=== PATIENT | female | born 1965 | race Caucasian/White ===

== ENCOUNTER 2017-06-09 20:01 | Emergency (ER) | payer OTHER ==
[~2017-06-09 20:01] MED LIST: CEFUROXIME500 MG PO; PYRIDIUM100 M1 PO
== END 2017-06-09 20:52 | disposition admitted as inpatient to this hospital (09) ==
LOC: ERH 20:01
DX: R10.9 Unspecified abdominal pain (principal)

== ENCOUNTER → 2017-07-18 | Day surgery (SDC) | payer OTHER ==
[~2017-07-18] MED LIST changes: +GABAPENTIN300 M2; +IBUPROFEN800 M1 PO; +PERCOCET 5-3251 EACH PO; +RESTASIS1 EACH OPH
--- NOTE | 2017-07-18 15:58 | ED GI/GU/ABDOMINAL COMPLAINT ---
History of Present Illness General Chief Complaint: Abdominal Pain/Flank Pain Stated Complaint: ABD PAIN Source: patient, family, old records Exam Limitations: no limitations Vital Signs & Intake/Output Vital Signs & Intake/Output Vital Signs Date Time Temp Pulse Resp B/P B/P Pulse O2 O2 Flow FiO2 Mean Ox Delivery Rate 07/18 1704 98.6 72 18 129/66 96 Room Air 07/18 1547 Room Air 07/18 1500 96.3 73 18 137/74 98 Room Air Allergies Coded Allergies: Sulfa (Sulfonamide Antibiotics) (Severe, FACIAL AND BODY SWELLING 06/09/17) Reconcile Medications Cefuroxime Axetil (Cefuroxime) 500 MG TABLET 1 TAB PO BID urinary tract infection. Gabapentin 300 MG CAPSULE ANXIETY (Reported) Phenazopyridine HCl (Pyridium) 100 MG TABLET 1 TAB PO TID painful urination Triage Note: 51 YO FEMALE TO TRIAGE C/O RLQ PAIN. STATES SHE HAS A KNOWN FIBROID ON HER OVARY THAT IS PRESSING ON HER URETER AND ?CAUSING FLUID TO BACK UP INTO HER KIDNEY. STATES SHE IS ABLE TO URINATE. STATES PAIN IN UNBEARABLE NOW. Triage Nurses Notes Reviewed? yes ? N Is pt currently ? No HPI: 51F no significant PMH, with RLQ and right flank pain since January, was seen at [facility] yesterday and the day before, comes in today with intractable 10/10 RLQ and right flank pain. Patient brought radiology report with her, which showed 14x8.9x14cm uterine mass compressing the right ureter causing right hydronephrosis. She was discharged home with Percocet and outpatient INSURANCE CLAIMS EXAMINER follow up. She denies fever, chills, n/v/d, chest pain, SOB, hematuria, constipation. Past History Travel History Traveled to [place] past 21 day No Medical History Any Pertinent Medical History? see below for history Neurological: migraine EENT: NONE Cardiovascular: NONE Respiratory: NONE Gastrointestinal: NONE Hepatic: NONE Renal: NONE Musculoskeletal: NONE Psychiatric: anxiety Endocrine: NONE Surgical History Surgical History: none Psychosocial History What is your primary language Cameroonian Tobacco Use: Never used Family History Hx Contributory? No Review of Systems Review of Systems Constitutional: Reports: no symptoms. EENTM: Reports: no symptoms. Respiratory: Reports: no symptoms. Cardiovascular: Reports: no symptoms. GI: Reports: no symptoms. Genitourinary: Reports: no symptoms. Musculoskeletal: Reports: no symptoms. Skin: Reports: no symptoms. Neurological/Psychological: Reports: no symptoms. Hematologic/Endocrine: Reports: no symptoms. Immunologic/Allergic: Reports: no symptoms. All Other Systems: Reviewed and Negative Physical Exam Physical Exam General Appearance: well developed/nourished, no apparent distress Head: atraumatic, normal appearance Eyes: Bilateral: normal appearance. Ears, Nose, Throat, Mouth: hearing grossly normal, moist mucous membrane Neck: normal inspection, full range of motion Respiratory: normal breath sounds, no respiratory distress Cardiovascular: regular rate/rhythm Gastrointestinal: soft, tender RLQ Back: normal inspection, normal range of motion Extremities: normal range of motion Neurologic/Psych: awake, alert, oriented x 3, normal mood/affect Skin: intact, normal color, warm/dry Core Measures ACS in differential dx? No Sepsis Present: No Sepsis Focused Exam Completed? No Progress Differential Diagnosis: AAA, AMI, appendicitis, biliary colic, bowel obstruction , colon cancer, cholecystitis, diverticulitis, ectopic , endometritis, esophageal varices, gastritis, hepatitis, hernia, hemorrhoids, ischemic bowel, inflamm bowel dis, intrauterine , kidney stone, Perla-Carlos tear, ovarian cyst, ovarian torsion, pancreatitis, PID/cervicitis, peptic ulcer, PUD/ GERD, perforated viscous, SBO, threatened AB, UTI/pyelo Plan of Care: Orders Procedure Date/time Status URINALYSIS 07/18 1558 Complete PARTIAL THROMBOPLASTIN TIME 07/18 1558 Complete PROTHROMBIN TIME 07/18 1558 Complete COMPREHENSIVE METABOLIC PANEL 07/18 1558 Complete CBC WITHOUT DIFFERENTIAL 07/18 1558 Complete Current Medications Sig/Suhas Start time Last Medication Dose Stop Time Status Admin Oxycodone/ 1 TAB Q4P PRN 07/18 1745 AC Acetaminophen (Percocet) Laboratory Tests 07/18/17 1653: Anion Gap 11, Estimated GFR > 60, BUN/Creatinine Ratio 21.7, Glucose 104 H, Calcium 8.7, Total Bilirubin 0.5, AST 16, ALT 22, Alkaline Phosphatase 77, Total Protein 6.7, Albumin 3.8, Globulin 2.9, Albumin/Globulin Ratio 1.3, Urine Color YEL, Urine Clarity CLEAR, Urine pH 6.0, Ur Specific [place] 1.020, Urine Protein NEG, Urine Ketones NEG, Urine Nitrite NEG, Urine Bilirubin NEG, Urine Urobilinogen 0.2, Ur Leukocyte Esterase SMALL H, Ur Microscopic SEDIMENT EXAMINED, Urine RBC 1-3, Urine WBC 3-5 H, Ur Epithelial Cells FEW, Urine Hemoglobin SMALL H, Urine Glucose NEG 07/18/17 1622: PT 11.8, INR 1.08, APTT 29, CBC w Diff NO MAN DIFF REQ, RBC 4.28, MCV 93.7, MCH 30.7, MCHC 32.8 L, RDW 13.6, MPV 10.7 H, Gran % 74.4, Lymphocytes % 14.4 L, Monocytes % 8.7, Eosinophils % 2.1, Basophils % 0.4, Absolute Granulocytes 7.3 H, Absolute Lymphocytes 1.4, Absolute Monocytes 0.9 H, Absolute Eosinophils 0.2 , Absolute Basophils 0 Spoke with INSURANCE CLAIMS EXAMINER who recommend urology consult and outpatient gynecology follow up. Spoke with who will take patient to OR for stent. Initial ED EKG: none Departure Departure Disposition: STILL A PATIENT Condition: Stable Clinical Impression Primary Impression: Uterine mass Secondary Impressions: Obstructive uropathy Referrals: Seun Lama MD (PCP/Family) Departure Forms: Customer Survey General Discharge Information OR/GI Note Spoke With: Cody Tinajero MD ED Treatment Decision: BERLIN CONDON requires urgent operative management or an emergent procedure that cannot be performed in the Emergency Room setting.
[2017-07-18 16:49] LABS: ABSOLUTE BASOPHIL COUNT 0 /CUMM (0.0-0.2); ABSOLUTE EOSINOPHIL COUNT 0.2 /CUMM (0.0-0.7); ABSOLUTE GRANULOCYTE CT 7.3 /CUMM (1.4-6.5); ABSOLUTE LYMPH COUNT 1.4 /CUMM (1.2-3.4); ABSOLUTE MONOCYTE COUNT 0.9 /CUMM (0.10-0.60); BASOPHIL % 0.4 % (0.0-2.0); EOSINOPHIL % 2.1 % (0-5); GRANULOCYTE % 74.4 % (42.2-75.2); MEAN CORPUSCULAR HGB 30.7 PG (27.0-31.0); MEAN CORPUSCULAR HGB CONC 32.8 G/DL (33.0-37.0); MEAN CORPUSCULAR VOLUME 93.7 FL (81.0-99.0); MEAN PLATELET VOLUME 10.7 FL (7.4-10.4); PLATELET COUNT 148 /CUMM (130-400); RBC DISTRIBUTION WIDTH 13.6 % (11.5-14.5); RED BLOOD CELL CT 4.28 /CUMM (4.20-5.40); WHITE BLOOD CELL COUNT 9.9 /CUMM (4.8-10.8)
[2017-07-18 16:56] LABS: PT 11.8 SEC (9.4-12.5); PTT 29 SEC (25-37)
[2017-07-18 17:04] VITALS: BP 129/66
--- NOTE | 2017-07-18 17:26 | Cons- Urology ---
General Information and HPI Consulting Request Date of Consult: 07/18/17 Requested By: MD NAUN, [facility]. Reason for Consult: SEVERE RIGHT COLIC WITH NEW SEVERE HYDRO DUE TO PELVIC MASS Source of Information: patient, old records Exam Limitations: no limitations History of Present Illness: 51YR OLD generally health seen at [place] few days ago with severe right colic: no prior hx. ct and renal us reveals right hydro with pelvic mass compression. pt discharged from er with pain meds. now at [place] with worsening pain. pt to see manager client support as outpatient. Allergies/Medications Allergies: Coded Allergies: Sulfa (Sulfonamide Antibiotics) (Severe, FACIAL AND BODY SWELLING 06/09/17) Home Med List: Cefuroxime Axetil (Cefuroxime) 500 MG TABLET 1 TAB PO BID urinary tract infection. Phenazopyridine HCl (Pyridium) 100 MG TABLET 1 TAB PO TID painful urination Past History Medical History Neurological: migraine EENT: NONE Cardiovascular: NONE Respiratory: NONE Gastrointestinal: NONE Hepatic: NONE Renal: NONE Musculoskeletal: NONE Psychiatric: anxiety Endocrine: NONE Surgical History Pertinent Surgical History: 1 Psychosocial History Where Do You Live? Home Who Do You Live With? self Services at Home: None Primary Language: Cambodian Smoking Status: Current Everyday Smoker ETOH Use: occasional use Illicit Drug Use: denies illicit drug use Functional Ability ADLs Independent: dressing, eating, toileting, bathing. Ambulation: independent IADLs Independent: shopping, housework, finances, food prep, telephone, transportation , medication admin. Employment History Retired? unknown Review of Systems Review of Systems Constitutional: Reports: see HPI. EENTM: Denies: no symptoms. Cardiovascular: Denies: no symptoms. Respiratory: Denies: no symptoms. GI: Reports: abdominal pain, bloating. Genitourinary: Denies: no symptoms. Musculoskeletal: Denies: no symptoms. Skin: Denies: no symptoms. Exam & Diagnostic Data Vital Signs and I&O Vital Signs Date Time Temp Pulse Resp B/P B/P Pulse O2 O2 Flow FiO2 Mean Ox Delivery Rate 07/18 1704 98.6 72 18 129/66 96 Room Air 07/18 1547 Room Air 07/18 1500 96.3 73 18 137/74 98 Room Air Physical Exam General Appearance: well developed/nourished, moderate distress Head: atraumatic Eyes: Bilateral: normal appearance. Ears, Nose, Throat: normal pharynx Neck: normal inspection Respiratory: normal breath sounds Cardiovascular: regular rate/rhythm Back: CVA tenderness (R) Extremities: normal inspection Skin: intact Last 24 Hours of Labs: Laboratory Tests 07/18 07/18 1653 1622 Chemistry Sodium Pending Potassium Pending Chloride Pending Carbon Dioxide Pending Anion Gap Pending BUN Pending Creatinine Pending BUN/Creatinine Ratio Pending Glucose Pending Calcium Pending Total Bilirubin Pending AST Pending ALT Pending Alkaline Phosphatase Pending Total Protein Pending Albumin Pending Globulin Pending Albumin/Globulin Ratio Pending Coagulation PT (9.4 - 12.5 SEC) 11.8 INR (0.90 - 1.19) 1.08 APTT (25 - 37 SEC) 29 Hematology CBC w Diff NO MAN DIFF REQ WBC (4.8 - 10.8 /CUMM) 9.9 RBC (4.20 - 5.40 /CUMM) 4.28 Hgb (12.0 - 16.0 G/DL) 13.1 Hct (37 - 47 %) 40.0 MCV (81.0 - 99.0 FL) 93.7 MCH (27.0 - 31.0 PG) 30.7 MCHC (33.0 - 37.0 G/DL) 32.8 L RDW (11.5 - 14.5 %) 13.6 Plt Count (130 - 400 /CUMM) 148 MPV (7.4 - 10.4 FL) 10.7 H Gran % (42.2 - 75.2 %) 74.4 Lymphocytes % (20.5 - 51.1 %) 14.4 L Monocytes % (1.7 - 9.3 %) 8.7 Eosinophils % (0 - 5 %) 2.1 Basophils % (0.0 - 2.0 %) 0.4 Absolute Granulocytes (1.4 - 6.5 /CUMM) 7.3 H Absolute Lymphocytes (1.2 - 3.4 /CUMM) 1.4 Absolute Monocytes (0.10 - 0.60 /CUMM) 0.9 H Absolute Eosinophils (0.0 - 0.7 /CUMM) 0.2 Absolute Basophils (0.0 - 0.2 /CUMM) 0 Urines Urine Color (YEL,AMB,STR) YEL Urine Clarity (CLEAR) CLEAR Urine pH (5.0 - 8.0) 6.0 Ur Specific [place] (1.001 - 1.035) 1.020 Urine Protein (NEG,<30 MG/DL) NEG Urine Ketones (NEG) NEG Urine Nitrite (NEG) NEG Urine Bilirubin (NEG) NEG Urine Urobilinogen (0.1 - 1.0 EU/dl) 0.2 Ur Leukocyte Esterase (NEG) SMALL H Ur Microscopic SEDIMENT EXAMINED Urine RBC (0 - 5 /HPF) 1-3 Urine WBC (0 - 2 /HPF) 3-5 H Ur Epithelial Cells (NONE,FEW) FEW Urine Hemoglobin (NEG) SMALL H Urine Glucose (N MG/DL) NEG Imaging Results: right hydro by report and cd with pt. Assessment/Plan Assessment/Plan right hydr/stent now Copies To: Cody Tinajero MD Consult Acknowledgment - Thank you for your consult request. Attending Review Statement Attending Statement Attending MD Statement: examined this patient, discuss w/resident/PA/INSPECTOR ALUMINUM BOAT Attending Assessment/Plan: right hydro for stent-will be sent to VEHICLE MONITOR TECHNICIAN outpatient for pelvic mass.
--- NOTE | 2017-07-18 19:00 | Operative Report ---
Operative/Inv Procedure Report Surgery Date: 07/18/17 Name of Procedure: cysto;right retrograde pyelogram; right stent placement;fluorosocopy Pre-Operative Diagnosis: right hydro. with colic due to pelvic mass compression Post-Operative Diagnosis: same Estimated Blood Loss: scant Surgeon/Roofer Assistant: MD Lior, [place]-urology Anesthesia: general endotracheal tube Implants: 6 X 22 Bard Stent Drains: none Specimens: none Complications: none Condition: improved Operative/Procedure Note Note: The patient was taken to the operating room placed OR table in supine position. Timeout was performed, with the patient awake, in order to confirm anesthesia, and other pertinent perioperative information. After adequate anesthesia, and antibiotics, the patient was then placed lithotomy stirrups, draped and prepped in the usual surgical fashion. A 22 Stateless cystoscope sheath with 30 angle lens was inserted into the urethra, subsequently into the bladder without difficulty. Upon thorough and systematic surveillance, the bladder was noted to be free of tumor, free of stone. Both ureteral orifices were in their orthotopic position with clear reflux from the left side, and no reflux on the right. The right orifice was intubated with an open-ended ureteral access catheter (tiger-tail). Retrograde pyelogram was gently performed in order to confirm hydronephrosis. Additionally, the retrograde helps to map/define the anatomy of the ureter, and kidney using fluoroscopy. The open-ended tiger tail stent was then removed. The right orifice was then intubated with a 0.035 Glidewire, which was advanced into the right ureter, and into the right upper pole of the kidney without difficulty. Over this Glidewire, a 6 x 22 Bard onlay double J stent was railroaded into the right ureter, and advanced over the wire into the right kidney, without difficulty. With the proximal coil in the right kidney, and the distal coil in the bladder, the Glidewire was removed. The stent remained in proper place;as confirmed cystoscopically, and fluoroscopically. Large amount of fluid was noted to drained from the right kidney, after placement of the stent on the right side. All sponge needle and instrument counts were correct at the end of the case. The bladder was then drained via the cystoscope, and then the scope removed without difficulty. The patient tolerated the procedure well was taken to recovery room in satisfactory condition. Findings: right hydro. ureter with lateral displacement due to pelvic mass Discharge Disposition: PACU Additional Comments: Pt to call Dr. Marte for pelvic mass evaluation CC: Jaycob Tinajero MD, MD,Clara Qureshi
--- NOTE | 2017-07-18 19:24 | RADIOLOGY REPORT ---
EXAMINATION: CR ABDOMEN/INTRAOPERATIVE FLUOROSCOPY CLINICAL INDICATION: Cystogram and right-sided stent placement. COMPARISON: None TECHNIQUE/FINDINGS: Fluoroscopic equipment was dedicated to the operating room for the performance of an intraoperative procedure. Several (3) spot films were acquired and are archived in PACS. Please refer to operative notes for procedural detail. FLUOROSCOPY TIME: 49 seconds. IMPRESSION: Administrative dictation for intraoperative fluoroscopy and image archiving in PACS. Please refer to operative notes for details.
== END ==
LOC: ERH 14:57 → STS 17:37 → ERH 19:45
PROVIDERS: Internal Medicine
DX: N13.39 Other hydronephrosis (principal); R19.00 Intra-abdominal and pelvic swelling, mass and lump, unspecified site; F17.200 Nicotine dependence, unspecified, uncomplicated
CPT/HCPCS: 74018; 81001; C2617; J0131; J0696; J1100; J1885; J2250; J2405; J3010; J3490

== ENCOUNTER 2017-07-22 01:40 | Inpatient (IN) | payer OTHER ==
[~2017-07-22] VITALS: Ht 157.5 cm; Wt 102.1 kg
[2017-07-22] VITALS (10 sets, daily range): BP systolic 116–132; BP diastolic 54–82
[~2017-07-22 01:40] MED LIST changes: -IBUPROFEN800 M1 PO; -PERCOCET 5-3251 EACH PO
--- NOTE | 2017-07-22 09:04 | Operative Report ---
Operative/Inv Procedure Report Surgery Date: 07/22/17 Name of Procedure: cysto: right stent removal. bilateral whistle tip stent insertion. Pre-Operative Diagnosis: fibroid/pelvic mass Post-Operative Diagnosis: same Estimated Blood Loss: scant Surgeon/Leak Detector: MD Lior, [place]-urology Anesthesia: general endotracheal tube Drains: 16fr tang Specimens: ucx Complications: none Operative/Procedure Note Note: The patient was taken to the operating room and placed on the OR table in supine position. Timeout was performed, with the patient awake, to confirm identify, planned procedures, anesthesia, antibiotics and other pertinent shyann-operative information. After adequate anesthesia, and IV antibiotics, the patient was placed in lithotomy Yellow-fin stirrups. She was then draped and prepped in the usual surgical fashion, including a vaginal prep. A 22 Persian cystoscope sheath with a 30 angle lens was inserted into the bladder without significant difficulty. The bladder was thoroughly and systematically examined, and was noted to be free of tumor, free of stone, free of endometriosis. Both ureteral orifices were in their orthotopic positions bilaterally. The right orifice was intubated with a stent, which was grasped with an alligPBC Lasers endoscopic grasper. The cystoscope along with entire stent was then removed gently without difficulty. The cystoscope was then reinserted into the bladder. Under direct visualization the left orifice was intubated with a 5 Persian whistle-tip catheter, which was advanced easily into the left kidney pelvis. The right ureteral orifice was intubated with a second 5 Persian ureteral whistle tip catheter, and advanced into the right renal pelvis without difficulty. For identification purposes the blue marked stent went into the left kidney and the right ureteral stent was marked red. Urine culture was obtained and sent to pathology. The cystoscope was then removed leaving both stents in proper place. An 18 Persian Tang catheter was inserted draining clear fluid and 10 mL of sterile water was then placed in the balloon. The ends ureteral stents, which protruded externally, were taped to the Tang catheter in order to secure their position. The individual ureteral stents were then connected to their individual drainage devices. The patient tolerated the procedure well. All sponge needle and instrument count were correct at the end of this procedure. The patient was then placed in supine position with Venodyne's in place. At this point, Dr.Vander Oates was able to proceed with the patient's surgery. Discharge Disposition: proceed with Dr. Marte CC: Cody Tinajero MD
[2017-07-23] VITALS (8 sets, daily range): BP systolic 108–140; BP diastolic 52–76
[2017-07-23 07:59] LABS: ABSOLUTE BASOPHIL COUNT 0 /CUMM (0.0-0.2); ABSOLUTE EOSINOPHIL COUNT 0 /CUMM (0.0-0.7); ABSOLUTE GRANULOCYTE CT 13.4 /CUMM (1.4-6.5); ABSOLUTE LYMPH COUNT 1.1 /CUMM (1.2-3.4); ABSOLUTE MONOCYTE COUNT 1.1 /CUMM (0.10-0.60); BASOPHIL % 0 % (0.0-2.0); HEMATOCRIT 36.6 % (37-47); MEAN CORPUSCULAR HGB CONC 33.3 G/DL (33.0-37.0)
[2017-07-23 08:12] LABS: EOSINOPHIL % 0 % (0-5); MEAN CORPUSCULAR HGB 31.2 PG (27.0-31.0); MEAN CORPUSCULAR VOLUME 93.8 FL (81.0-99.0); MEAN PLATELET VOLUME 11.1 FL (7.4-10.4); PLATELET COUNT 167 /CUMM (130-400); RBC DISTRIBUTION WIDTH 13.6 % (11.5-14.5); RED BLOOD CELL CT 3.91 /CUMM (4.20-5.40)
[2017-07-23 08:15] LABS: WHITE BLOOD CELL COUNT 15.5 /CUMM (4.8-10.8)
[2017-07-23 08:28] LABS: GRANULOCYTE % 86.3 % (42.2-75.2)
[2017-07-24 06:43] VITALS: BP 110/62
[2017-07-24] MEDS ORDERED: IBUPROFEN800 M1 PO (12:08)
[2017-07-24] MEDS ORDERED: PERCOCET 5-3251 EACH PO (12:08)
--- NOTE | 2017-07-27 18:36 | Operative Report ---
Operative/Inv Procedure Report Surgery Date: 07/22/17 Name of Procedure: Supracervical hysterectomy peritoneal washings partial omentectomy intraoperative consult Cody Tinajero MD removal of stents Pre-Operative Diagnosis: Pelvic mass Post-Operative Diagnosis: Same Estimated Blood Loss: 500 Surgeon/Eye Dropper Assembler: Estuardo VAUGHN,Clara Qureshi and Dr. Cristo gonzalez [facility] Anesthesia: general endotracheal tube Operative/Procedure Note Note: Procedure note patient was taken to the operating room after adequate induction general anesthesia via endotracheal tube patient placed in dorsolithotomy position at this point tap block was placed timeout had been performed prior to patient going to sleep Dr. Jesusita Tinajero placed stents and will dictate same patient was returned spine position after placement stents after the abdomen was prepped and draped so fashion through Pfannenstiel skin incision 2 fingerbreadths of symptoms pubis in midline skin was cut was carried down to rectus fascia which was cut in curvilinear fashion I direction using the Bovie the rectus she was dissected bluntly as well as sharply off the rectus muscle and the peritoneum was entered high the abdomen bluntly. At this point peritoneal washings were obtained sportswear laparotomy was performed the omentum was slightly caked the midline Rouse O'Gerard was placed in usual fashion at this point the uterus is normal size and the left adnexal had a 4 cm simple cyst was elevated. The bladder flap was developed sharply after the round ligament on the right suture-ligated using 0 round ligament on the left round ligament been suture-ligated 0. At this point sequentially cervical branches uterine artery clamped and cut to level of the external os. The Right endopelvic artery was clamped and cut to remove the mass that was on the right broad ligament the broad ligament was entered the specimen was elevated clamped and removed and sent to pathology for frozen section. At this point Cody Tinajero MD was called for consult as there was a 4 cm 55 cm elongated mass retroperitoneal over the right ureter. Dr. Tinajero's consult is fully available At this point the cervical branches the uterine artery on the left were clamped and cut cut to level of the external os the cervix was difficult to elevate secondary patient's body habitus the specimen of the uterus was removed using a Bovie the cuff was oversewn using 0 hemostasis was apparent all pedicles were reexamined and resutured at this point the endopelvic artery on the right was resutured the right tube and ovary were clamped and cut and removed and oversewn using 0 the left ovary and tube were clamped cut and removed and oversewn 3 using 0 all pedicles were reexamined and found to be hemostatic at the end of the case the omentum was removed with a Endo VICKEY with care taken to avoid torsion the bowel hemostasis was apparent at this point Paige. Was applied to the surgical cuff hemostasis was apparent the peritoneum was reapproximated using 0 the far shows reapproximated to continue sutures of #1 the subcutaneous tissue was Bovie coagulated found to be hemostatic skin was reapproximated jessica after oral lap pads and instruments have been removed from the abdomen. At the end of the case the vagina was irrigated found to be hemostatic the stents removed bilaterally tip intact. Patient was awakened from anesthesia extubated and transferred recovery room awake alert with counts correct after cell dressing had been applied to the incision
== END 2017-07-24 12:23 | DRG 519 ==
LOC: 2NB 01:40 → SDA 01:40 → ENRESERV 12:08 → ENTRNSPT 12:53 → EDTRNSPTSTS 13:06 → 2NB 13:19 → CMPTRNSPT 13:33 → ENPENDDIS 07-24 12:14 → 2NB 07-24 12:23
PROVIDERS: Specialist
PROC: 0UT70ZZ Resection of Bilateral Fallopian Tubes, Open Approach (ICD-10-PCS; principal; 2017-07-22)
PROC: 0DBU0ZZ Excision of Omentum, Open Approach (ICD-10-PCS; principal; 2017-07-22)
PROC: 0UT90ZL Resection of Uterus, Supracervical, Open Approach (ICD-10-PCS; principal; 2017-07-22)
PROC: 0UT20ZZ Resection of Bilateral Ovaries, Open Approach (ICD-10-PCS; principal; 2017-07-22)
PROC: 0T788DZ Dilation of Bilateral Ureters with Intraluminal Device, Via Natural or Artificial Opening Endoscopic (ICD-10-PCS; 2017-07-22)
PROC: 3E0T3BZ Introduction of Anesthetic Agent into Peripheral Nerves and Plexi, Percutaneous Approach (ICD-10-PCS; 2017-07-22)
PROC: 0TP98DZ Removal of Intraluminal Device from Ureter, Via Natural or Artificial Opening Endoscopic (ICD-10-PCS; 2017-07-22)
PROC: 3E1M38X Irrigation of Peritoneal Cavity using Irrigating Substance, Percutaneous Approach, Diagnostic (ICD-10-PCS; 2017-07-22)
DX: D25.9 Leiomyoma of uterus, unspecified (principal); F17.200 Nicotine dependence, unspecified, uncomplicated; E66.9 Obesity, unspecified; Z68.41 Body mass index [BMI] 40.0-44.9, adult; Z88.2 Allergy status to sulfonamides
CPT/HCPCS: 2NBP; 36415; 36592; 81025; 87086; 88305; J0131; J0694; J1170; J1200; J1650; J1885; J2405